=== PATIENT | female | born 1940 | race Caucasian/White ===

== ENCOUNTER 2022-02-09 17:21 | Inpatient (IN) | payer OTHER ==
[~2022-02-09] VITALS: Ht 170.2 cm; Wt 90.3 kg
[2022-02-09 17:33] VITALS: BP 137/85
--- NOTE | 2022-02-09 17:45 | NUR ---
81YO FEMALE PT BIB [facility] C/O SOB XTODAY. PT STATES GOING TO URGENT CARE FOR COUGH AND CONGESTION . PER [facility] , PT W/ O2 88% RA AT VISIT. PT RECEIVED ON 2L VIA NC W/ IMPROVEMENT OF 98%. NOTES 1 SEC SHARP CHEST PAIN , DENIES AT THIS TIME. MOIST COUGH PRESENT. KELECHI LOWER LEG +1 EDEMA NOTED. KELECHI CLEAR LUNG SOUNDS. RESPIRATIONS EVEN AND UNLABORED. PT AAOX4, AMB USING CANE. ON SUPERVISOR WARPING DEPARTMENT. HX: CHF, AFIB, HTN, ANXIETY ALLERGIES: IODINE
[2022-02-09] MEDS ORDERED: FUROSEMIDE 20 MG/2 ML VIAL IVP ONE (18:45)
--- NOTE | 2022-02-09 18:53 | NUR ---
81/F RUFINO FROM [facility]. PER EMS, STAFF CALLED 911 STATING PATIENT WAS BEING SEEN AT URGENT CARE FOR COLD SYMPTOMS AND WAS TAKEN OFF OXYGEN AND O2 DROPPED TO 88%. PATIENT O2 AT 98% ON 2L NC, PATIENT REPORTS SHE INITIALLY HAD CHEST PAIN AT THE URGENT CARE BUT DENIES CHEST PAIN UPON ARRIVAL TO ED. PATIENT REPORTS SLIGHT SOB UPON EXERTION. PATIENT DENIES N/V/D, DIZZINESS, HEADACHE OR NUMBNESS.
--- NOTE | 2022-02-09 18:57 | NUR ---
pt swabbed for covid(isma) and flu. walked and handed to lab
--- NOTE | 2022-02-09 19:08 | NUR ---
XRAY AT BEDSIDE
--- NOTE | 2022-02-09 19:11 | NUR ---
1900 ABG DRAWN ON ROOM AIR. PLACED PT ON 2LNC POST ABG RESULTS
--- NOTE | 2022-02-09 19:27 | NUR ---
REPORT GIVEN TO AJIT MCADAMS. TRANSFER OF CARE AT THIS TIME
[2022-02-09 19:45] LABS: BASOPHILS % (AUTO) 0.6 % (0.0-2.0); EOSINOPHILS # (AUTO) 0.1 K/uL (0-0.4); EOSINOPHILS % (AUTO) 1.1 % (0.0-4.0); HEMATOCRIT 41.6 % (36-48); HEMOGLOBIN 13.5 g/dL (12.0-16.0); LYMPHOCYTES # (AUTO) 0.7 K/uL (2.5-16.5); LYMPHOCYTES % (AUTO) 9.7 % (20.5-51.1); MEAN CORPUSCULAR HEMOGLOBIN 29 pg (27-31); MEAN CORPUSCULAR HGB CONC 33 g/dL (33-37); MEAN CORPUSCULAR VOLUME 88.2 fL (80-94); MONOCYTES # (AUTO) 0.7 K/uL (0.8-1.0); MONOCYTES % (AUTO) 9.5 % (1.7-9.3); NEUTROPHILS # (AUTO) 5.4 K/uL (1.8-7.7); NEUTROPHILS % (AUTO) 79.1 % (42.2-75.2); PLATELET COUNT (AUTO) 191 K/uL (140-450); RED BLOOD CELL COUNT(AUTO) 4.72 MIL/uL (4.20-5.40); RED CELL DISTRIBUTION WIDTH 15.5 % (11.6-13.7); WHITE BLOOD COUNT (AUTO) 6.8 K/uL (4.8-10.8)
[2022-02-09 20:05] LABS: APPEARANCE,URINE SL CLOUDY (CLEAR); BILIRUBIN,URINE NEGATIVE (NEGATIVE); BLOOD, URINE NEGATIVE (NEGATIVE); COLOR,URINE YELLOW (YELLOW); LEUKOCYTE ESTERASE ,URINE TRACE (NEGATIVE); NITRITE, URINE POSITIVE (NEGATIVE); UGLUCOSE NEGATIVE (NEGATIVE)
[2022-02-09] MEDS ORDERED: AZITHROMYCIN 500 MG in DEXTROSE 5% 250 ML IV ONE (20:05)
[2022-02-09 20:09] LABS: ASPARTATE AMINOTRANSFERASE 18 U/L (15-37); CARBON DIOXIDE 36.5 mmol/L (21-32); CHLORIDE 99 mmol/L (98-107); CREATININE 0.9 mg/dL (0.6-1.3); GLUCOSE 101 mg/dL (74-106); SODIUM SERUM 145 mmol/L (136-145); TOTAL BILIRUBIN 0.7 mg/dL (0.0-1.0); UREA NITROGEN, BLOOD 11 mg/dL (7-18)
[2022-02-09 20:14] LABS: LIPASE 71 U/L (73-393); POTASSIUM 2.5 mmol/L (3.5-5.1)
[2022-02-09] MEDS ORDERED: KCL 20 MEQ/WATER INJ PREMIX 100 ML IV ONE (20:15)
[2022-02-09] MEDS ORDERED: POTASSIUM CHLORIDE 10 MEQ TABER PO ONE (20:15)
[2022-02-09 20:23] LABS: OTHER CASTS, URINE None Seen /LPF (None Seen)
[2022-02-09] MEDS ORDERED: cefTRIAXone 1,000 MG VIAL ONE (20:24)
[2022-02-09] MEDS ORDERED: AZITHROMYCIN 500 MG INJ VIAL IV ONE (20:24)
[2022-02-09] MEDS ORDERED: ONDANSETRON 4 MG/2 ML VIAL IM/IVP PRN (22:15)
[2022-02-09] MEDS ORDERED: ACETAMINOPHEN 325 MG TAB PO PRN (22:15)
[2022-02-09] MEDS ORDERED: POTASSIUM CHLORIDE 10 MEQ TABER PO PRN (22:15)
[2022-02-09] MEDS ORDERED: ZOLPIDEM 5 MG TAB PO PRN (22:15)
[2022-02-09] MEDS ORDERED: DOCUSATE SODIUM 100 MG GELCAP PO PRN (22:15)
[2022-02-09] MEDS ORDERED: HYDROcodone/APAP 7.5/325 MG 1 TAB PO PRN (22:15)
[2022-02-09] MEDS ORDERED: ALBUTEROL SULFATE/IPRATROPIU 3 ML SOL IH PRN (22:20)
[2022-02-09 23:11] LABS: PROTHROMBIN TIME 31.8 secs (10.8-13.4)
[2022-02-09] MEDS: NACL 0.9% 1,000 ML IV SCH (23:14)
[2022-02-09] MEDS: guaiFENesin DM 200/20 MG-10 ML 10 ML UDC PO PRN (23:15)
[2022-02-09 23:21] LABS: CHOL/HDL RATIO 3.4 (1-4.5); FREE T4 (FREE THYROXINE) 1.93 ng/dL (0.76-1.46); MAGNESIUM 1.8 mg/dL (1.8-2.4); PHOSPHORUS 3.3 mg/dL (2.5-4.9); THYROID STIMULATING HORMONE 0.5 uIU/mL (0.34-3.74)
[2022-02-09] MEDS ORDERED: SACU1TAB9 PO (23:39)
[2022-02-09] MEDS ORDERED: CARV25TA2 PO (23:39)
[2022-02-09] MEDS ORDERED: WARF3TAB18 PO (23:39)
[2022-02-09] MEDS ORDERED: LEVO0.124 PO (23:39)
[2022-02-09] MEDS ORDERED: FURO-570 PO (23:39)
[2022-02-10] MEDS ORDERED: PIPERACILLIN/TAZOBACTAM 3.375 GM VIAL IV ONE ×2 (00:54→06:29)
[2022-02-10] MEDS: PIPERACILLIN/TAZOBACTAM 3.375 GM in DEXTROSE 5% 50 ML IV SCH ×5 (01:02→23:16)
[2022-02-10] MEDS: ALBUTEROL SULFATE/IPRATROPIU 3 ML SOL IH SCH (07:00)
[2022-02-10 07:07] LABS: BASOPHILS % (AUTO) 0.9 % (0.0-2.0); EOSINOPHILS # (AUTO) 0.1 K/uL (0-0.4); EOSINOPHILS % (AUTO) 2.1 % (0.0-4.0); HEMOGLOBIN 11.9 g/dL (12.0-16.0); LYMPHOCYTES # (AUTO) 0.6 K/uL (2.5-16.5); LYMPHOCYTES % (AUTO) 10.5 % (20.5-51.1); MEAN CORPUSCULAR HEMOGLOBIN 28 pg (27-31); MEAN CORPUSCULAR HGB CONC 32 g/dL (33-37); MEAN CORPUSCULAR VOLUME 88.2 fL (80-94); MONOCYTES # (AUTO) 0.6 K/uL (0.8-1.0); MONOCYTES % (AUTO) 11.2 % (1.7-9.3); NEUTROPHILS # (AUTO) 4.1 K/uL (1.8-7.7); NEUTROPHILS % (AUTO) 75.3 % (42.2-75.2); PLATELET COUNT (AUTO) 176 K/uL (140-450); RED BLOOD CELL COUNT(AUTO) 4.19 MIL/uL (4.20-5.40); RED CELL DISTRIBUTION WIDTH 15.3 % (11.6-13.7); WHITE BLOOD COUNT (AUTO) 5.4 K/uL (4.8-10.8)
[2022-02-10 07:25] LABS: ANION GAP 9.8 (8-16); CARBON DIOXIDE 37.5 mmol/L (21-32); CHLORIDE 102 mmol/L (98-107); CREATININE 0.8 mg/dL (0.6-1.3); GLUCOSE 101 mg/dL (74-106); POTASSIUM 3.3 mmol/L (3.5-5.1); SODIUM SERUM 146 mmol/L (136-145); UREA NITROGEN, BLOOD 10 mg/dL (7-18)
--- NOTE | 2022-02-10 07:30 | NUR ---
REPORT RECEIVED FROM AJIT MCADAMS. ASSUMED CARE AT THIS TIME
--- NOTE | 2022-02-10 08:30 | NUR ---
Patient will be admitted to care of MD GALLO. Admited to TELE . Will go to room 111A . Belongings list completed. Report to MINOO MCADAMS.
--- NOTE | 2022-02-10 08:56 | NUR ---
The patient's care was reviewed and supervised by [facility], RN.
[2022-02-10] MEDS: PANTOPRAZOLE 40 MG TABEC PO SCH (09:33)
--- NOTE | 2022-02-10 10:40 | NUR ---
PATIENT HAS BEEN SCREENED AND CATEGORIZED MODERATE NUTRITION RISK. PATIENT WILL BE SEEN WITHIN 3-5 DAYS OF ADMISSION. REVIEWED BY MOISES CASIANO RD
[2022-02-10 12:00] VITALS: BP 146/84
--- NOTE | 2022-02-10 13:15 | NUR ---
DC PLANNING SW MET W/ PT AT BEDSIDE TO COMPLETE ASSESSMENT. PT REPORTS RESIDING IN A SINGLE [facility], AT THE ADDRESS LISTED ON FILE. PT IDENTIFIED DEVON DE LA O, SON, EMERGENCY CONTACT.PT REPORTS MEETING WITH PCP REGULARLY, LAST VISIT; 1 MONTH AGO. PT REPORTS MEETING WITH SALES CONTRACTOR, DR. HENRY 1 MONTH AGO. AND HAS AN APPT SCHEDULED FOR 12/12 WHICH SHE CANCELLED SHE IS ADMITTED TO [facility]. PT REPORTS ECHO APPT SCHEDULED FOR 02/23. PT REPORTS MEDICATION COMPLIANCE AND DENIES BARRIERS IN ACCESS TO NEEDED MEDICATIONS. PT REPORTS RECEIVING MEDICATION FROM [facility] ON BASELINE IN [place], WHEN NEEDED. PT REPORTS UTILIZING CANE HOWEVER, REPORTS COMPLETING ADL'S INDEPENDENTLY. PT DENIES MH/SUB USE HX. PT DENIES HX OF DIABETES, DIALYSIS, SNF PLACEMENT, HH, HOSPICE CARE. PT REPORTS ADEQUATE FRIEND AND FAMILY SUPPORT. PT REPORTS DC PLAN IS TO RETURN HOME W/ SCAN PROVIDING INSURANCE AND OR [employer] TRANSPORTATION. SW ENCOURAGED PT TO REQUEST [employer] SERVICE WITH DC NURSE TO ASSIST IN ARRANGING. SW INQUIRED ON RESOURCES NEEDED. PT REQUESTED UPDATE ON DISTRIBUTION OF MEDS. SW ENDORSED TO PT NURSE TO PROVIDE PT WITH UPDATE. Addendum: 02/11/22 at 0923 by Jean CANO Amended: Links added. Addendum: 02/13/22 at 1028 by Jean CANO MICHELLE UHERTA NO F/UP APPT SCHEDULED
[2022-02-10 16:00] VITALS: BP 162/98
[2022-02-10] MEDS: NACL 0.9% 1,000 ML IV SCH (16:06)
[2022-02-10] MEDS: carvediloL 12.5 MG TAB PO SCH (16:14)
--- NOTE | 2022-02-10 19:45 | NUR ---
RECEIVED PT FROM MORNING SHIFT NURSE. PT IS AOX4, AMBULATORY, ABLE TO FOLLOW COMMANDS AND ABLE TO VERBALIZE NEEDS. PT IS ON 4L NC AND ON CARDIAC DIET. PT HAS IV ON RIGHT AC GAUGE 20 AND RIGHT WRIST GAUGE 22 RUNNING WITH NS AT 60 ML/HR. PT SKIN IS INTACT. ALL SAFETY MEASURES IMPLEMENTED. BED IN LOW POSITION, BED WHEELS ON LOCK AND CALL LIGHT WITHIN REACH.
[2022-02-10 20:00] VITALS: BP 142/84
[2022-02-10] MEDS ORDERED: COMMUNICATION ORDER MC SCH (21:00)
[2022-02-10] MEDS: ENTRESTO PO SCH (21:24)
--- NOTE | 2022-02-10 21:24 | NUR ---
SCHEDULED AND PRESCRIBED MEDICATION WAS GIVEN TO PT PER MD ORDER. ALL SAFETY MEASURES IMPLEMENTED. BED IN LOW POSITION AND CALL LIGHT WITHIN REACH.
[2022-02-10] MEDS: guaiFENesin DM 200/20 MG-10 ML 10 ML UDC PO PRN (22:33)
--- NOTE | 2022-02-10 23:16 | NUR ---
SCHEDULED AND PRESCRIBED MEDICATION WAS GIVEN TO PT PER MD ORDER. ALL SAFETY MEASURES IMPLEMENTED. BED IN LOW POSITION AND CALL LIGHT WITHIN REACH.
[2022-02-11] VITALS: BP 150/91
--- NOTE | 2022-02-11 01:00 | NUR ---
PT REFUSED 4L NC. EDUCATED THE PT BUT STILL PT REFUSED TO USE AND WEAR IT.
[2022-02-11 04:00] VITALS: BP 157/98
--- NOTE | 2022-02-11 04:00 | NUR ---
MORNING CARE WAS DONE TO PT. CHANGED GOWN, LINENS AND CHUCKS. ALL SAFETY MEASURES IMPLEMENTED. BED IN LOW POSITION, BED WHEELS ON LOCK AND CALL LIGHT WITHIN REACH.
[2022-02-11] MEDS: PIPERACILLIN/TAZOBACTAM 3.375 GM in DEXTROSE 5% 50 ML IV SCH (05:27)
--- NOTE | 2022-02-11 07:30 | NUR ---
PT IS STABLE. ENDORSED PT TO MORNING SHIFT NURSE FOR CONTINUITY OF CARE.
[2022-02-11] MEDS: NACL 0.9% 1,000 ML IV SCH (07:35)
[2022-02-11 07:39] LABS: ANION GAP 11.4 (8-16); CARBON DIOXIDE 35.6 mmol/L (21-32); CHLORIDE 102 mmol/L (98-107); CREATININE 0.8 mg/dL (0.6-1.3); GLUCOSE 108 mg/dL (74-106); SODIUM SERUM 146 mmol/L (136-145); UREA NITROGEN, BLOOD 10 mg/dL (7-18)
[2022-02-11 07:43] LABS: BASOPHILS % (AUTO) 0.5 % (0.0-2.0); EOSINOPHILS # (AUTO) 0.2 K/uL (0-0.4); EOSINOPHILS % (AUTO) 2.6 % (0.0-4.0); HEMATOCRIT 38.7 % (36-48); HEMOGLOBIN 12.6 g/dL (12.0-16.0); LYMPHOCYTES # (AUTO) 0.5 K/uL (2.5-16.5); LYMPHOCYTES % (AUTO) 8.5 % (20.5-51.1); MEAN CORPUSCULAR HEMOGLOBIN 29 pg (27-31); MEAN CORPUSCULAR HGB CONC 33 g/dL (33-37); MEAN CORPUSCULAR VOLUME 88.1 fL (80-94); MONOCYTES # (AUTO) 0.5 K/uL (0.8-1.0); MONOCYTES % (AUTO) 8.7 % (1.7-9.3); NEUTROPHILS % (AUTO) 79.7 % (42.2-75.2); PLATELET COUNT (AUTO) 194 K/uL (140-450); RED BLOOD CELL COUNT(AUTO) 4.39 MIL/uL (4.20-5.40); RED CELL DISTRIBUTION WIDTH 14.8 % (11.6-13.7); WHITE BLOOD COUNT (AUTO) 6.3 K/uL (4.8-10.8)
[2022-02-11 08:00] VITALS: BP 137/79
[2022-02-11] MEDS: carvediloL 12.5 MG TAB PO SCH (08:00)
[2022-02-11 08:07] LABS: T4 (THYROXINE) 11.1 ug/dL (4.5-12.0)
[2022-02-11] MEDS: ALBUTEROL SULFATE/IPRATROPIU 3 ML SOL IH SCH (08:27)
[2022-02-11] MEDS: ENTRESTO PO SCH (09:00)
[2022-02-11] MEDS: PANTOPRAZOLE 40 MG TABEC PO SCH (09:00)
[2022-02-11] MEDS ORDERED: FUROSEMIDE 40 MG TAB PO SCH (09:00)
--- NOTE | 2022-02-11 09:09 | NUR ---
PATIENT REMOVED ALL HER TUBES INCLUDING OXYGEN, PUREWICK, IV, TEL MONITOR, AND REQUESTING UNDERWEAR, DIAPER,, THEN START DRESSING HER SELF, CALLED HER RIDE TELMA NORTON. NURSE CONTACT PATIENT'S PCP AND INFORMED MULTIPLE DRUM SANDER FOR PATIENT ACUTE ACTING TO LEAVE. NURSE RETURN PATIENT'S OWN MEDICATION.AND MULTIPLE DRUM SANDER WENT PHARMACY AND BRING BACK ALL HER HOME MEDS AND RETURN TO PATIENT. AT THE TIME NURSE DOCUMENT THE EVENT. RENATO NORTON IS HERE. Addendum: 02/11/22 at 1045 by Fabiola Peter RN PATIENT REFUSES TO SIGN AMA DOCUMENT AND ELOPES WITH TELMA NORTON AFTER DR. GALLO TALK TO PATIENT
[2022-02-11 10:02] LABS: PROTHROMBIN TIME 28.3 secs (10.8-13.4)
== END 2022-02-11 10:15 | disposition left against medical advice (07) | DRG 871 ==
LOC: MED 17:21 → MTU 21:52
PROVIDERS: ADMIT Family Medicine; ATTEND Family Medicine
DX: A41.9 Sepsis, unspecified organism (principal); J69.0 Pneumonitis due to inhalation of food and vomit; J96.00 Acute respiratory failure, unspecified whether with hypoxia or hypercapnia; N39.0 Urinary tract infection, site not specified; E87.0 Hyperosmolality and hypernatremia; I48.91 Unspecified atrial fibrillation; E87.6 Hypokalemia; D63.8 Anemia in other chronic diseases classified elsewhere; E86.0 Dehydration; I50.9 Heart failure, unspecified; E03.9 Hypothyroidism, unspecified; H26.9 Unspecified cataract; E78.5 Hyperlipidemia, unspecified; I11.0 Hypertensive heart disease with heart failure; B96.20 Unspecified Escherichia coli [E. coli] as the cause of diseases classified elsewhere; Z20.822 Contact with and (suspected) exposure to COVID-19; F41.9 Anxiety disorder, unspecified; Z90.49 Acquired absence of other specified parts of digestive tract; Z98.890 Other specified postprocedural states; Z88.8 Allergy status to other drugs, medicaments and biological substances
CPT/HCPCS: 36415; 36600; 71045; 80048; 80053; 81001; 82150; 82803; 83036; 83605; 83690; 83735; 83880; 84100; 84436; 84439; 84443; 84479; 84484; 85025; 85610; 85730; 87040; 87070; 87086; 87205; 93005; 94640; 96365; 96366; 96375; 99291; J0456; J0696; J1940; J2543; J3480; J7060; Q0092